=== PATIENT | male | born 1985 | race Caucasian/White ===

== ENCOUNTER 2018-01-19 19:05 | Observation (INO) ==
--- NOTE | 2018-01-19 19:51 | Emergency Department Note ---
Disposition Clinical Impression: Lower abdominal pain Disposition: Still a Patient General Adult HPI - General Chief complaint: ED Abdominal Pain Stated complaint: abdominal/back pain Time Seen by Provider: 01/19/18 19:14 Source: patient Limitations: no limitations - History of Present Illness Pain Scale: 9 - Related Data Home Medications Medication Instructions Recorded Confirmed Gabapentin [Neurontin] 300 mg PO TID 05/18/17 05/18/17 Previous Rx's Medication Instructions Recorded OxyCODONE/APAP 5/325 [Percocet 1 each PO Q6HR PRN 1 Days #2 tablet 05/12/17 5/325 MG] Aspirin Enteric Coated [Aspirin EC] 81 mg PO BID #60 tablet. 05/18/17 Oxycodone HCl/Acetaminophen 1 each PO Q6HR 7 Days #28 tablet 05/18/17 [Percocet 10-325 mg Tablet] predniSONE [PredniSONE] 40 mg PO DAILY #10 tablet 07/12/17 Allergies Allergy/AdvReac Type Severity Reaction Status Date / Time propoxyphene AdvReac Hives Verified 01/19/18 19:09 [From Alberto] Past Medical History - Past Medical History Medical history: Reports: other Surgical history: Reports: orthopedic, other (leg fracture repair 04/2017), other (Tonsillectomy) Psychiatric history: Reports: no psych history - Social History Smoking Status: Current every day smoker Smokeless Tobacco Status: No Alcohol use: Reports: occasionally Drug use: Reports: none Physical Exam - General Limitations: no limitations General appearance: alert, anxious Course Vital Signs Temperature 97.7 F 01/19/18 19:08 Pulse Rate 76 01/19/18 19:08 Respiratory Rate 16 01/19/18 19:08 Blood Pressure 148/88 01/19/18 19:08 O2 Sat by Pulse Oximetry 99 01/19/18 19:08 Temperature 97.7 F 01/19/18 19:32 Pulse Rate 76 01/19/18 19:32 Respiratory Rate 16 01/19/18 19:32 Blood Pressure 148/88 01/19/18 19:32 O2 Sat by Pulse Oximetry 99 01/19/18 19:32 Oxygen Delivery Oxygen Delivery Room Air Attestation Statement - Attestation Attestation: I examined this patient and my medical decision-making was reviewed with the Resident Physician. I agree with the documented findings, disposition and treatment plan as described except to the extent set forth below. 32-year-old male presents to [facility] for lower abdominal pain. Started today. Concerns for possible diverticulitis. Pain radiates to his back. No diarrhea or vomiting. No fevers. On exam, patient is very tender to the lower abdomen. We will do a CT scan as well as lab work. Oral evaluate for possible urinary infection as well as possible diverticulitis.
[2018-01-19 20:00] LABS: Bilirubin,Urine Negative (Negative); Blood,Urine Negative (Negative); Clarity,Urine Clear (Clear); Color,Urine Yellow (Yellow); Glucose,Urine (UA) Normal (Normal); Ketones,Urine Negative (Negative); Leukocyte Esterase,Urine Negative (Negative); Nitrite,Urine Negative (Negative); Protein,Urine Negative (Neg-Trace); Specific Gravity,Urine 1.025 (1.010-1.025); Urobilinogen,Urine Normal (Normal)
--- NOTE | 2018-01-19 20:00 | Emergency Department Note ---
Disposition Clinical Impression: Lower abdominal pain, Acute appendicitis Disposition: Still a Patient Condition: Fair Abdominal Pain HPI - General Chief Complaint: ED Abdominal Pain Stated Complaint: abdominal/back pain Time Seen by Provider: 01/19/18 19:14 Source: patient Mode of arrival: private vehicle Limitations: no limitations Nursing Notes Reviewed: Yes Vital Signs Reviewed: Yes - History of Present Illness HPI Narrative: 32-year-old male presenting to the ED for approximately 2 hours of m idline abdominal pain radiating into his right lower quadrant and right flank. Patient admits to a history of UTI denies kidney stones. Patient states the pain is sharp and stabbing in nature, states he gets better with rest and worsens with movement. Patient states that upon initial presentation the pain was 12/10 on the pain scale and is now 7-8 out of 10. Pt Subjective Complaint: abdominal pain, flank pain Onset (ago): hour(s) Consistency: constant, Improving Location: periumbilical, RLQ, R flank Pain Severity: severe Pain Scale: 9 Quality: stabbing, sharp Radiation: RLQ, R flank Migration to: no migration Improves with: rest Worsens with: movement Associated symptoms: Reports: denies other symptoms - Related Data Previous Rx's Medication Instructions Recorded Docusate Sodium [Colace] 100 mg PO BID PRN #30 capsule 01/20/18 RX: Ibuprofen 800 mg PO Q8H PRN #42 tablet 01/20/18 RX: OxyCODONE/APAP 5/325 [Percocet 1 each PO Q6HR PRN 7 Days #28 01/20/18 5/325 MG] tablet Allergies Allergy/AdvReac Type Severity Reaction Status Date / Time propoxyphene AdvReac Hives Verified 01/19/18 19:09 [From Gen-Kya] All systems ED: reviewed and negative except as stated. Cardiovascular: Denies: chest pain Respiratory: Denies: dyspnea Gastrointestinal: Reports: abdominal pain, vomiting. Denies: nausea, hematochezia Genitourinary: Denies: dysuria, hematuria Neurological: Denies: headache, weakness Psychiatric: Reports: as per HPI Endocrine: Reports: as per HPI Hematological/Lymphatic: Reports: as per HPI Allergic/Immunologic: Reports: as per HPI Abdominal Pain PMH - Past Medical History Medical history: Reports: other Male Surgical History: Reports: Adenoidectomy, orthopedic, other, Tonsillectomy Psychiatric history: Reports: no psych history - Social History Smoking status: Current every day smoker Alcohol use: Reports: occasionally Drug use: Reports: none Physical Exam - General Limitations: no limitations General appearance: alert, in no apparent distress - Head Head exam: atraumatic, normocephalic - Eye Eye exam: Present: normal appearance, PERRL, EOMI. Absent: scleral icterus, conjunctival injection - Chest Chest inspection: Present: normal inspection, symmetric chest wall rise - Respiratory Respiratory exam: Present: normal lung sounds bilaterally. Absent: respiratory distress, accessory muscle use, prolonged expiratory phase - Cardiovascular Cardiovascular exam: Present: regular rate, normal rhythm, normal heart sounds, +S1, +S2. Absent: JVD, +S3, +S4 - Abdominal Exam Abdominal exam: Present: soft, tenderness. Absent: distention, guarding, rebound, rigidity Course Course Narrative: Patient history, review of systems, physical exam are concerning for diverticulitis, appendicitis versus urinary tract infection, versus kidney stone. CT scan of the abdomen and pelvis, CBC, BMP, and urinalysis to be performed further assess for abdominal versus pathology. Vital Signs Temperature 97.7 F 01/19/18 19:08 Pulse Rate 76 01/19/18 19:08 Respiratory Rate 16 01/19/18 19:08 Blood Pressure 148/88 01/19/18 19:08 O2 Sat by Pulse Oximetry 99 01/19/18 19:08 Temperature 97.7 F 01/19/18 19:32 Pulse Rate 76 01/19/18 19:32 Respiratory Rate 16 01/19/18 19:32 Blood Pressure 148/88 01/19/18 19:32 O2 Sat by Pulse Oximetry 99 01/19/18 19:32 Oxygen Delivery Oxygen Delivery Room Air Abdominal Pain - MDM Narrative Medical decision making narrative: CT scan of the abdomen and pelvis was positive for acute appendicitis. My attending physician spoke with general surgeon-Dr. Villalba who accepted the patient. Patient was prescribed Zosyn at surgeon's request. Plan was discussed with the patient with patient acknowledgment and agreement. - Medical Records Medical records reviewed: Yes I reviewed the patient's medical records. - Lab Data Lab results reviewed: Yes I reviewed the patient's lab results. Result diagrams: 01/19/18 20:13 01/19/18 20:13 Lab Results 01/19/18 01/19/18 01/19/18 Range/Units 19:25 20:13 20:13 WBC 16.6 H (4.3-11.1) K/mcL RBC 4.41 (4.19-5.50) M/mcL Hgb 13.5 (12.9-16.9) g/dL Hct 40.5 (37.5-50.1) % MCV 91.8 (83.0-100.0) fL MCH 30.6 (28.0-33.3) pg MCHC 33.3 (31.6-35.5) g/dL RDW 14.1 (11.5-14.5) % Plt Count 203 (140-400) K/mcL MPV 9.3 L (9.4-12.4) fL Immature Gran % 0.4 (0-4) % Seg Neutrophils % 63.0 % Lymphocytes % 24.3 % Monocytes % 7.8 % Eosinophils % 4.1 % Basophils % 0.4 % Neutrophils # 10.5 H (1.6-8.9) K/mcL Lymphocytes # 4.0 (0.6-4.6) K/mcL Monocytes # 1.3 (0.0-1.3) K/mcL Eosinophils # 0.7 H (0.0-0.6) K/mcL Basophils # 0.1 (0.0-0.2) K/mcL Sodium 139 (136-145) mEq/L Potassium 4.0 (3.5-5.1) mEq/L Chloride 104 (98-107) mEq/L Carbon Dioxide 28 (23-29) mEq/L BUN 16 (6-20) mg/dL Creatinine 0.96 (0.70-1.30) mg/dL Est GFR ( Amer) > 60 (> 60) Est GFR (Non-Af Amer) > 60 (> 60) BUN/Creatinine Ratio 17 (6-26) Glucose 77 (70-105) mg/dL Calculated Osmolality 288 (280-300) Calcium 9.5 (8.6-10.3) mg/dL Urine Color Yellow (Yellow) Urine Clarity Clear (Clear) Urine pH 6.0 (5.0-8.0) pH Units Ur Specific [place] 1.025 (1.010-1.025) Urine Protein Negative (Neg-Trace) mg/dL Urine Glucose (UA) Normal (Normal) mg/dL Urine Ketones Negative (Negative) mg/dL Urine Blood Negative (Negative) Urine Nitrite Negative (Negative) Urine Bilirubin Negative (Negative) Urine Urobilinogen Normal (Normal) mg/dL Ur Leukocyte Esterase Negative (Negative) Ur Culture Indicated? NO (NO) - Radiology Data Radiology results reviewed: Yes I reviewed the patient's radiology results. Abdomen/Pelvis CT 01/19/18 19:48 IMPRESSION: Findings compatible with acute appendicitis, without evidence of perforation seen at this time. Vascular calcifications, advanced for the patient's age. Any risk factors for atherosclerosis should be managed aggressively. Multilevel degenerative disc and facet disease, also advanced for the patient's age. D/ / Donaldo Herny MD / Donaldo Henry MD Interpreting Provider: Donaldo Henry MD
[2018-01-19 20:32] LABS: Basophils # 0.1 K/mcL (0.0-0.2); Basophils % 0.4 %; Eosinophils # 0.7 K/mcL (0.0-0.6); Eosinophils % 4.1 %; Hematocrit 40.5 % (37.5-50.1); Hemoglobin 13.5 g/dL (12.9-16.9); Immature Granulocytes % 0.4 % (0-4); Lymphocytes % 24.3 %; Mean Corpuscular HGB Conc 33.3 g/dL (31.6-35.5); Mean Corpuscular Hemoglobin 30.6 pg (28.0-33.3); Mean Corpuscular Volume 91.8 fL (83.0-100.0); Mean Platelet Volume 9.3 fL (9.4-12.4); Monocytes # 1.3 K/mcL (0.0-1.3); Monocytes % 7.8 %; Neutrophils # 10.5 K/mcL (1.6-8.9); Platelet Count 203 K/mcL (140-400); Red Blood Count 4.41 M/mcL (4.19-5.50); Red Cell Distribution Width 14.1 % (11.5-14.5)
[2018-01-19] MEDS ORDERED: 0.9 % Sodium Chloride 1,000 ML IVC ONE (20:41)
[2018-01-19 20:49] LABS: BUN/Creatinine Ratio 17 (6-26); Blood Urea Nitrogen 16 mg/dL (6-20); Calcium 9.5 mg/dL (8.6-10.3); Carbon Dioxide 28 mEq/L (23-29); Chloride 104 mEq/L (98-107); Glucose 77 mg/dL (70-105); Osmolality,Calculated 288 (280-300); Sodium 139 mEq/L (136-145); eGFR For Non-African Americans > 60 (> 60)
[2018-01-19] MEDS ORDERED: Piperacillin/Tazobactam 3.375 GM in Water for inj. (sterile) 20 ML 20 ML IVP ONE ×2 (20:54→22:00)
[2018-01-19] MEDS ORDERED: Ondansetron 4 MG/2 ML VIAL IVP PRN (21:00)
[2018-01-19] MEDS ORDERED: 0.9 % Sodium Chloride 1,000 ML IVC SCH (21:00)
[2018-01-19] MEDS ORDERED: 0.9 % Sodium Chloride 1,000 ML ONE (21:13)
[2018-01-19] MEDS: OXYCODONE Oral CONC 10 MG/0.5 ML ORAL.SYG SL PRN (21:24)
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
[2018-01-20] MEDS: OXYCODONE Oral CONC 10 MG/0.5 ML ORAL.SYG SL PRN (02:57)
[2018-01-20] MEDS ORDERED: Piperacillin/Tazobactam 3.375 GM in 0.9 % Sodium Chloride Mini Bag 100 ML IVPB SCH ×2 (06:00→14:00)
[2018-01-20] MEDS ORDERED: *HR* Heparin 5,000 UNIT/ML VIAL SQ SCH ×2 (06:00→18:00)
[2018-01-20] MEDS ORDERED: Lidocaine -MPF 4% 5 ML AMPUL ONE (07:22)
[2018-01-20] MEDS ORDERED: *HR* FentaNYL (PF) 100 MCG/2 ML VIAL ONE (07:25)
[2018-01-20] MEDS ORDERED: *HR* Propofol 200 MG/20 ML VIAL IVP ONE (07:25)
[2018-01-20] MEDS ORDERED: *HR* Midazolam HCl 2 MG/2 ML VIAL ONE (07:25)
[2018-01-20] MEDS ORDERED: Dexamethasone 4 MG/ML VIAL ONE (07:28)
[2018-01-20] MEDS ORDERED: Lidocaine -MPF 2% 2 ML VIAL ONE (07:28)
[2018-01-20] MEDS ORDERED: *HR* Rocuronium Bromide 50 MG/5 ML VIAL ONE (07:28)
[2018-01-20] MEDS ORDERED: Ondansetron 4 MG/2 ML VIAL ONE (07:28)
[2018-01-20] MEDS ORDERED: Acetaminophen IV 1,000 MG/100 ML INFUS..BTL ONE (07:56)
[2018-01-20] MEDS ORDERED: *HR* OxyCODONE/APAP 5/325 TABLET PO PRN ×2 (08:33→12:27)
[2018-01-20] MEDS ORDERED: Ondansetron 4 MG/2 ML VIAL IVP ONE (08:33)
[2018-01-20] MEDS ORDERED: *HR* Promethazine 25 MG/ML VIAL IVP PRN (08:33)
[2018-01-20] MEDS ORDERED: Neostigmine Methylsulfate 3 MG/3 ML SYRINGE ONE (08:57)
[2018-01-20] MEDS: *HR* HYDROmorphone (PF) 1 MG/ML SYRINGE IVP PRN ×4 (09:21→09:44)
[2018-01-20] MEDS ORDERED: 0.9 % Sodium Chloride 1,000 ML IVC SCH (10:08)
[2018-01-20] MEDS ORDERED: Ondansetron 4 MG/2 ML VIAL IVP PRN (10:08)
[2018-01-20] MEDS ORDERED: *HR* OxyCODONE Immed Rel 5 MG TABLET PO PRN (10:08)
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
--- NOTE | 2018-01-20 10:53 | General Surgery Progress Note ---
Date of Encounter: 01/20/18 Time of Encounter: 10:07 - Assessment and Plan (1) Acute appendicitis Current Visit: Yes Status: Acute 32M with acute appendicitis s/p lap appy; appendix was acute inflammed; removed without issue; d/c abx IVF; SLIV when tolerating PO reg diet PO pain control if tolerating diet and pain controlled by dinner, then okay for discharge Qualifiers: Acute appendicitis type: with localized peritonitis Appendicitis gangrene presence: unspecified whether gangrene present Appendicitis perforation presence: without perforation Appendicitis abscess presence: without abscess Qualified Code(s): K35.30 - Acute appendicitis with localized peritonitis, without perforation or gangrene Subjective Patient reports: no new complaints, still having pain, afebrile Objective Vital Signs - Last 8 Hours Temp Pulse Resp BP Pulse Ox 01/20/18 09:51 74 16 129/80 93 01/20/18 09:41 98.3 F 72 16 126/83 96 01/20/18 09:31 71 16 123/77 95 01/20/18 09:21 58 18 126/80 97 01/20/18 09:11 98.2 F 79 16 125/74 100 01/20/18 06:53 98.4 F 76 16 109/66 93 Intake and Output 01/19/18 01/20/18 01/20/18 23:59 07:59 15:59 Intake Total 20 / 20 100 / 100 500 / 500 Output Total 5 / 5 Balance 20 / 20 100 / 100 495 / 495 Intake: IV Fluids 20 / 20 100 / 100 500 / 500 0.9 % Sodium Chloride 1,000 ML 500 / 500 @ 100 mls/hr IVC .Q10H MIMA Rx#: [id number] Zosyn 3.375 GM In Water for inj 20 / 20 . (sterile) 20 ML @ 400 mls/hr IVP ONCE ONE Rx#:[id number] Zosyn 3.375 GM In 0.9 % Sodium 100 / 100 Chloride (Mini-Bag +) 100 ML @ 25 mls/hr IVPB Q8H MIMA Rx#: [id number] Oral 0 / 0 Output: Estimated Blood Loss 5 / 5 Other: Meal NPO Stool Characteristics Normal for Patient Stool Color Brown # Voids 1 Weight 97.522 kg Blood Glucose* 90 - General physical appearance no distress - Respiratory normal expansion, normal respiratory effort - Cardiovascular Cardiovascular exam: Present: RRR - Abdomen Abdomen: Present: soft Abdominal Tenderness: RLQ - Neurologic CN 2-12 grossly intact - Musculoskeletal normal gait - Psychiatric oriented to time, oriented to person, oriented to place - Labs 01/19/18 20:13 01/19/18 20:13 Diabetes panel 01/19/18 Range/Units 20:13 Sodium 139 (136-145) mEq/L Potassium 4.0 (3.5-5.1) mEq/L Chloride 104 (98-107) mEq/L Carbon Dioxide 28 (23-29) mEq/L BUN 16 (6-20) mg/dL Creatinine 0.96 (0.70-1.30) mg/dL Glucose 77 (70-105) mg/dL Calcium 9.5 (8.6-10.3) mg/dL Calcium panel 01/19/18 Range/Units 20:13 Calcium 9.5 (8.6-10.3) mg/dL Pituitary panel 01/19/18 Range/Units 20:13 Sodium 139 (136-145) mEq/L Potassium 4.0 (3.5-5.1) mEq/L Chloride 104 (98-107) mEq/L Carbon Dioxide 28 (23-29) mEq/L BUN 16 (6-20) mg/dL Creatinine 0.96 (0.70-1.30) mg/dL Glucose 77 (70-105) mg/dL Calcium 9.5 (8.6-10.3) mg/dL Adrenal panel 01/19/18 Range/Units 20:13 Sodium 139 (136-145) mEq/L Potassium 4.0 (3.5-5.1) mEq/L Chloride 104 (98-107) mEq/L Carbon Dioxide 28 (23-29) mEq/L BUN 16 (6-20) mg/dL Creatinine 0.96 (0.70-1.30) mg/dL Glucose 77 (70-105) mg/dL Calcium 9.5 (8.6-10.3) mg/dL Consult Discharge Plan - Plan Referrals: NONE,PCP [Primary Care Provider] -
--- NOTE | 2018-01-20 10:53 | Anesthesia Evaluation Post Op ---
Date of Encounter: 01/20/18 Time of Encounter: 09:50 - Vital Signs Vital Signs: Vital Signs/O2 Sat/Glucose, Most Recent Temp Pulse Resp BP Pulse Ox 98.3 F 74 16 129/80 93 01/20/18 09:41 01/20/18 09:51 01/20/18 09:51 01/20/18 09:51 01/20/18 09:51 Blood Glucose* 90 - Lungs Lungs: Rhonchi - Airway Airway: Non-obstructed - Cardiovascular Regular Rate - Mental Status Mental Status: Alert & Oriented, Answers Appropriately - Pain Pain Scale: 7 Pain Scale used: Numeric (1 - 10) - Nausea Vomiting Nausea Vomiting: Not Present - Hydration Hydration: Tolerates oral liquids, Has not voided Notes: 01/20/18 10:06 Pt has fully recovered from anesthetic. A/O x3. Denies any chest pain or dypnea. Pain 7/10. 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 - Discharge PostOp Status: Transfer Patient to floor
--- NOTE | 2018-01-20 10:53 | Operative Note ---
Date of procedure: 01/20/18 Pre-op diagnosis: acute appendicitis Post-op diagnosis: same Procedure: laparoscopic appendectomy Implants: none Complications: none Anesthesia: GETA Local Anesthetics: 0.5% Sensorcaine HCL SubQ (cc) Surgeon: Price Villalba Was there an criminal legal assistant present: No Estimated blood loss (cc): 5 Specimen: appendix Condition: stable Disposition: PACU Procedure in Detail: The patient was brought into the operating room suite. The patient was placed in the supine position. Mechanical DVT prophylaxis was initiated. The patient underwent smooth induction of general endotracheal anesthesia. The patient was prepped and draped in the usual fashion. Preoperative antibiotics were given. A timeout was held identifying the correct patient, pathology, and procedure. Everyone was in agreement and we began a procedure. Incision to Mesenteric Window I started bycreating a supraumbilical incision and via open Hernández technique entered into the abdomen. I then used a Vicryl suture on a UR 6 needle in a [id number] fashion to reapproximate but not close the fascia. I then inserted the 10 trocar followed by the camera to visualize the intraabdominal cavity. I then created a 5 mm incision suprapubically and inserted the 5 mm trocar under direct visualization. Roughly 1 handbreadth lateral to the umbilical incision I created another 5 mm incision and inserted another 5 mm trocar under direct visualization. I then inserted the nontraumatic instruments into the 5 mm ports and began the procedure. I was able to identify the tinea coli coalescing at the base of the cecum to identify the appendix. It did appear inflammed. Using the nontraumatic grasper I was able to grasp the appendix and then using the [place] dissector was able to create a mesenteric window. Mesenteric Window to Appendectomy I then inserted the nontraumatic grasper into the same mesenteric window to widen it. I then grasped the appendix and switched from the 10 mm camera to the 5 mm camera so that we can insert the stapler through the umbilical port. The teeth of the stapler through the mesenteric window. It should be stated that the stapler was a bowel load stapler. It was positioned at the base of the appendix and I was able to confirm under direct visualization that the teeth contained no other structures such as the cecum. I then fired the stapler and resected the appendix from the base of the cecum. I then loaded up a vascular load stapler and then in the similar fashion did fire across the mesentery. There was minimal bleeding coming from the mesentery, so i used electrocautery as well as two 5mm clips to gain hemostasis. No bleeding was noted after intervention. Retrieval to Closure I then inserted the Endo Catch bag to retrieve the specimen which was intact u wolfgang retrieval. I then switched back to the 10 mm camera and inserted the nontraumatic grasper as well as a suction-wellness trainer into the 5 mm ports. And under direct visualization I was able to appreciate the staple line of the mesoappendix as well as the staple line of the base of the cecum. There was no obvious leaking nor bleeding. The pelvis did not have any collection of fluid. I then concluded the procedure, turned off the insufflation, removed the trochars under direct visualization, and then closed the umbilical fascia using the Vicryl suture that was placed at the beginning. I then closed all incisions with interrupted 4-0 Monocryl. And then sealed with Dermabon. It should be stated that I did use 0.5% Marcaine as a local anesthetic. The patient tolerated the procedure well and did go back to PACU in stable condition.
--- NOTE | 2018-01-20 12:25 | Discharge Summary ---
Orders not resulted at time of discharge: Pending orders 01/20/18 08:58 Surgical Pathology [PTH] Routine Date of Encounter: 01/20/18 Time of Encounter: 12:28 - Discharge Diagnosis (1) Acute appendicitis Priority: Primary Status: Resolved Qualifiers: Acute appendicitis type: with localized peritonitis Appendicitis gangrene presence: unspecified whether gangrene present Appendicitis perforation presence: without perforation Appendicitis abscess presence: without abscess Qualified Code(s): K35.30 - Acute appendicitis with localized peritonitis, without perforation or gangrene General Surgery Exam Initial Vital Signs Temp Pulse Resp BP Pulse Ox 97.7 F 76 16 148/88 99 01/19/18 19:08 01/19/18 19:08 01/19/18 19:08 01/19/18 19:08 01/19/18 19:08 - Hospital Course Hospital course: Mr. Hernández is a 32 year old male who presented on 01/19/2018 with complaints of right lower quadrant pain. His exam and imaging were consistent with acute appendicitis. He was taken to the operating room on 01/20/2018 where he underwent an uncomplicated laparoscopic appendectomy. He is ambulating avoiding without difficulty, tolerating a diet without nausea or vomiting, vital signs are stable, afebrile, and abdominal discomfort is controlled. We will begin discharge planning to home with a follow-up in approximately 2 weeks. - Time Spent with Patient Total time spent providing and/or coordinating discharge services: - Discharge Medications Prescriptions: OxyCODONE/APAP 5/325 [Percocet 5/325 MG] 1 each PO Q6HR PRN 7 Days #28 tablet PRN Reason: Pain Docusate Sodium [Colace] 100 mg PO BID PRN #30 capsule PRN Reason: Constipation Ibuprofen 800 mg PO Q8H PRN #42 tablet PRN Reason: Mild Pain Home Medications: Docusate Sodium [Colace] 100 mg PO BID PRN #30 capsule 01/20/18 [Rx] Ibuprofen 800 mg PO Q8H PRN #42 tablet 01/20/18 [Rx] OxyCODONE/APAP 5/325 [Percocet 5/325 MG] 1 each PO Q6HR PRN 7 Days #28 tablet 01/20/18 [Rx] Allergies/Adverse Reactions: Allergy/AdvReac Type Severity Reaction Status Date / Time propoxyphene AdvReac Hives Verified 01/19/18 19:09 [From [facility]] Date of admission: 01/19/18 21:17 Primary care physician: PCP NONE Discharging clinician: Gretel Crockett Anticipated date of discharge: 01/20/18 Labs on day of discharge: Labs from last 24 hours 01/20/18 01/19/18 01/19/18 05:43 20:13 20:13 WBC 16.6 H RBC 4.41 Hgb 13.5 Hct 40.5 MCV 91.8 MCH 30.6 MCHC 33.3 RDW 14.1 Plt Count 203 MPV 9.3 L Immature Gran % 0.4 Seg Neutrophils % 63.0 Lymphocytes % 24.3 Monocytes % 7.8 Eosinophils % 4.1 Basophils % 0.4 Neutrophils # 10.5 H Lymphocytes # 4.0 Monocytes # 1.3 Eosinophils # 0.7 H Basophils # 0.1 Sodium 139 Potassium 4.0 Chloride 104 Carbon Dioxide 28 BUN 16 Creatinine 0.96 Est GFR ( Amer) > 60 Est GFR (Non-Af Amer) > 60 BUN/Creatinine Ratio 17 Glucose 77 POC Glucose 90 Calculated Osmolality 288 Calcium 9.5 Urine Color Urine Clarity Urine pH Ur Specific [place] Urine Protein Urine Glucose (UA) Urine Ketones Urine Blood Urine Nitrite Urine Bilirubin Urine Urobilinogen Ur Leukocyte Esterase Ur Culture Indicated? 01/19/18 19:25 WBC RBC Hgb Hct MCV MCH MCHC RDW Plt Count MPV Immature Gran % Seg Neutrophils % Lymphocytes % Monocytes % Eosinophils % Basophils % Neutrophils # Lymphocytes # Monocytes # Eosinophils # Basophils # Sodium Potassium Chloride Carbon Dioxide BUN Creatinine Est GFR ( Amer) Est GFR (Non-Af Amer) BUN/Creatinine Ratio Glucose POC Glucose Calculated Osmolality Calcium Urine Color Yellow Urine Clarity Clear Urine pH 6.0 Ur Specific [place] 1.025 Urine Protein Negative Urine Glucose (UA) Normal Urine Ketones Negative Urine Blood Negative Urine Nitrite Negative Urine Bilirubin Negative Urine Urobilinogen Normal Ur Leukocyte Esterase Negative Ur Culture Indicated? NO - Impressions ITS Impressions Abdomen/Pelvis CT 01/19/18 19:48 IMPRESSION: Findings compatible with acute appendicitis, without evidence of perforation seen at this time. Vascular calcifications, advanced for the patient's age. Any risk factors for atherosclerosis should be managed aggressively. Multilevel degenerative disc and facet disease, also advanced for the patient's age. D/ / Donaldo Henry MD / Donaldo Henry MD Interpreting Provider: Donaldo Henry MD - Patient Status Disposition: Home, Self-Care Condition: Fair Functional capacity at discharge: independent ambulation Overall status at discharge: patient is progressing back to baseline - Discharge Instructions Instructions: Laparoscopic Appendectomy (DC) Follow Up With: NONE,PCP [Primary Care Provider] - Price Villalba MD [Non-Partnered Physician] - 01/31/18 11:00 am Additional Instructions: General Surgical Discharge Instructions 1. No pushing, pulling, or lifting greater than 15 lbs for 2-4 weeks (depending upon procedure). 2. You may shower beginning today, but no tub baths, soaking, or swimming for 2 weeks. 3. You may resume driving when you are off narcotics and are safe to react in a car. 4. Take ibuprofen every 8 hours for discomfort. If this does not relieve discomfort, you may take the as needed Percocet. Take narcotics as directed. Do not take more narcotics then directed and do not share your narcotics with any other person. Do not drink alcohol while on narcotics. 5. Take stool softeners (Colace) or a water based laxative (Miralax) while taking narcotics. You may hold for loose stools. 6. Report any fevers greater than 100.5F, increase abdominal discomfort, drainage that looks like pus, increased redness or pain at the surgical site, or any vomiting. 7. Report any pain in the calves, shortness of breath, or rapid heartbeat. 8. Follow-up in the office as directed. 9. If you were prescribed antibiotics, do not stop them without talking to your provider. - Diet and Activity Activity: increase activity as tolerated, return to work once cleared by your PCP/specialist Diet: advance to your usual diet
[2018-01-20] MEDS ORDERED: Ibuprofen 800 MG TABLET PO ONE (12:27)
[2018-01-20 13:03] VITALS: BP 134/77
== END 2018-01-20 13:16 | disposition home or self-care (01) ==
LOC: EMEROOARM 19:05 → 3ANU 19:05
PROVIDERS: ADMIT Surgery; ATTEND Surgery